=== PATIENT | female | born 1955 | race Caucasian/White ===

== ENCOUNTER → 2022-12-20 | Emergency (ER) | payer OTHER ==
[~2022-12-20] VITALS: Ht 172.7 cm; Wt 56.7 kg
[~2022-12-20] MED LIST: CIPRO500 MG PO
== END | disposition home or self-care (01) ==
LOC: ER 20:23
DX: S81.851A Open bite, right lower leg, initial encounter (principal); W55.01XA Bitten by cat, initial encounter; Y93.89 Activity, other specified; Y92.89 Other specified places as the place of occurrence of the external cause